=== PATIENT | male | born 1985 | race Caucasian/White ===

== ENCOUNTER 2021-07-24 20:53 | Inpatient (IN) ==
[2021-07-24] MEDS ORDERED: SODIUM CHLORIDE 0.9% 1000ML 1,000 ML IV SCH (21:30)
[2021-07-24] MEDS ORDERED: OPTIRAY 320 125ml IV ONE (21:34)
[2021-07-24 21:44] LABS: Basophils # (auto) 0.01 K/uL (0-0.2); Basophils % (auto) 0.1 %; Hematocrit (blood only) 53.6 % (42-52); Hemoglobin 18.7 g/dL (14.0-18.0); Immature Granulocytes # (auto) 0.03 K/uL (0.00-0.02); Immature Granulocytes % (auto) 0.3 %; Lymphocytes # (auto) 2.03 K/uL (1.2-3.4); Lymphocytes % (auto) 22.6 %; Mean Corpuscular Hemoglobin 29.6 pg (25-34); Mean Corpuscular Hgb Conc 34.9 g/dL (32-36); Mean Corpuscular Volume 84.9 fL (80-100); Mean Platelet Volume 10.4 fL (7.4-10.4); Monocytes # (auto) 0.91 K/uL (0.11-0.59); Monocytes % (auto) 10.1 %; Neutrophils % (auto) 66.9 %; Platelet Count 275 K/uL (130-400); RDW Standard Deviation 40.2 fL (36.4-46.3); Red Blood Count 6.31 M/uL (4.7-6.1); White Blood Count 8.98 K/uL (4.8-10.8)
[2021-07-24 21:47] LABS: Partial Thromboplastin Time 26.8 Seconds (21.0-31.0); Prothrombin Time 10.7 Seconds (9.0-12.0)
[2021-07-24 22:11] LABS: Creatinine Clr Calc Pharmacy 126.1 ml/min; Est GFR (African American) 102.5 ml/min; Est GFR (Non-African American) 88.5 ml/min; Potassium 4.1 mmol/L (3.5-5.1)
[2021-07-24 22:12] LABS: Albumin Globulin Ratio 1.5 (0.9-2); Albumin Level 5.2 gm/dl (3.4-5.0); Bilirubin,Total 1.5 mg/dl (0.2-1.0); Calcium 9.9 mg/dl (8.5-10.1); Globulin 3.4 gm/dl (2.5-4.0); Total Protein 8.6 gm/dl (6.0-8.3)
[2021-07-24 22:15] LABS: Troponin I High Sensitivity 4.8 pg/ml (0-20)
[2021-07-24] MEDS ORDERED: hydroCHLOROthiazide 25 MG TAB PO STA (22:44)
[2021-07-24] MEDS ORDERED: VALSARTAN 80 MG TAB PO STA (22:44)
[2021-07-24 22:46] LABS: Adenovirus PCR Not Detected (NotDetected); Bordetella parapertussis PCR Not Detected (NotDetected); Bordetella pertussis PCR Not Detected (NotDetected); Chlamydia pneumoniae PCR Not Detected (NotDetected); Coronavirus 229E PCR Not Detected (NotDetected); Coronavirus HKU1 PCR Not Detected (NotDetected); Coronavirus NL63 PCR Not Detected (NotDetected); Coronavirus OC43PCR Not Detected (NotDetected); Human Metapneumovirus PCR Not Detected (NotDetected); Influenza A PCR Not Detected (NotDetected); Influenza B PCR Not Detected (NotDetected); Mycoplasma pneumoniae PCR Not Detected (NotDetected); Parainfluenza Virus 1 PCR Not Detected (NotDetected); Parainfluenza Virus 2 PCR Not Detected (NotDetected); Parainfluenza Virus 3 PCR Not Detected (NotDetected); Parainfluenza Virus 4 PCR Not Detected (NotDetected); Respiratory Syncytial VirusPCR Not Detected (NotDetected); Rhinovirus/Enterovirus PCR Not Detected (NotDetected)
[2021-07-24 22:59] LABS: Lyme Ab IgG w/WB Rflx Negative (Negative)
[2021-07-24 23:00] LABS: Lyme Ab IgM w/WB Rflx Negative (Negative)
[2021-07-24 23:00] LABS: Coronavirus CoV-2 (COVID19)PCR DETECTED (NotDetected)
[2021-07-24] MEDS ORDERED: hydrALAZINE HCL 20 MG/ML VIAL IV ONE (23:08)
[2021-07-24] MEDS ORDERED: GADOBUTROL 15ML VIAL IV ONE (23:26)
--- NOTE | 2021-07-25 01:24 | Emergency Department Note ---
ED Provider Note CHIEF COMPLAINT: CVA sx HISTORY OF PRESENT ILLNESS: This 36 yo male patient presents to the emergency department with complaints of facial weakness. The patient states his face feels tired and he is not able to get his words out. He has difficulty swallowing, although he states he can do it. His tongue feels heavy and as though he bit it. He denies any acute pain. Patient denies any visual changes but states his eyes feel tired. He denies any trauma to the head or neck. He denies any recent fevers. He was recently in [place] and states he had a viral illness several days ago. It was mild in nature and he did not think much of i t. The patient resides in [place] and is here for a bachelor constitution party. He states he did have just 1 or 2 drinks today, purposefully "taking it easy" as he was not doing well. REVIEW OF SYSTEMS: A review of systems was performed with positives and pertinent negatives listed in the history of present illness. 10 systems were reviewed and are otherwise negative. ALLERGIES: see below MEDICATIONS: see below PMH: see below SOCIAL HISTORY: see below DDx: Infection, dehydration, metabolic abnormality, hypo/hyperglycemia, electrolyte disturbance, anemia, hypoxia, cardiac sources, intracerebral event, toxicologic, neurologic, as well as other pathologies. PHYSICAL EXAM: Vital signs reviewed. General: Somewhat ill appearing 36 yo male, in no significant distress. HEENT: No scleral icterus, PERRLA, neck supple. Atraumatic. No significant swelling. Extraocular muscles appear to be weak with frequent eye rolling. 4 mm gap to eyelid closing bilaterally. Cardiovascular: Regular rate and rhythm, no extra sounds. Pulmonary: Clear to auscultation bilaterally, normal work of breathing. Abdomen: Soft, nontender, nondistended, positive bowel sounds. Musculoskeletal: Atraumatic, no peripheral edema. Neurologic: Patient awake alert and oriented x 3, speech is muffled but purposeful. Patient has difficulty with articulation. Intact [id number]. Negative pronator drift. Equal emt. Equal sensation to the bilateral facial cheeks. Skin: Warm, dry, no rash EMERGENCY DEPARTMENT COURSE/MDM: This patient was evaluated and appeared to be in no significant distress. Physical examination was performed and is concerning for stroke versus Stephenson's palsy. Patient is noted to be markedly hypertensive and oral medications were ordered per his home regimen. Nursing stated that he had automatically failed his swallow evaluation based on his presenting symptoms therefore IV hydralazine was ordered. Hydralazine did not significantly improve his blood pressure. I did speak with the stroke attending at [facility], Dr. 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 CT angiograms of the head and neck were performed and revealed no evidence of acute abnormality. Neurology had recommended MRI with and without contrast to evaluate for the possibility of malignancy versus stroke. Patient was informed of the findings and plan. He wa s medicated with IV acyclovir and IV Solu-Medrol. MONITORING: An order for cardiac monitoring was placed and the patient is noted to be in a normal sinus rhythm at 98 beats per minute. RADIOLOGY: Preliminary Findings Only See Final Report For Complete Findings CTA HEAD: The cavernous carotids are intact. The MCAs and ACAs are intact. The vertebrals, basilar and metal ceiling builder are intact. origin of both metal ceiling builder. Impression: No acute findings. Radiologist: Stef Henning M.D. Study ready at 21:53 and initial results transmitted at 21:59 Communications: Clear Time Type Notes 07/24/21 22:06 Call Doctor Regarding Stroke, called Dr. Milton on 07/24 22:06 (-04:00) *This Preliminary Findings Only See Final Report For Complete Findings CTA NECK: The aortic arch is intact. The right carotids are intact. The left carotids are intact. The vertebral arteries are intact. Upper lung gross are clear. Soft tissue structures are intact. No acute findings in the bones. Impression: No acute findings. Radiologist: Stef Henning M.D. Study ready at 21:53 and initial results transmitted at 21:59 Communications: Clear Time Type Notes 07/24/21 22:06 Call Doctor Regarding Stroke, called Dr. Milton on 07/24 22:06 (-04:00) MRI HEAD : No mass, hemorrhage or acute infarct. No extra-axial collections. The ventricles are intact. No abnormal enhancement. Impression: No acute findings. Radiologist: Stef Henning M.D. Study ready at 23:41 and initial results transmitted at 01:26 EKG: Normal sinus rhythm with sinus arrhythmia at 94 bpm. Left atrial enlargement, incomplete right bundle branch block, QTC is 435. No previous for comparison. DISPOSITION:Admit Past Med/Surg History Social History Smoking Status: Never smoker Preferred Language: Spanish Feels Safe at Home: Yes Allergies Allergies Allergy/AdvReac Type Severity Reaction Status Date / Time shellfish derived AdvReac CHOKES Verified 07/25/21 01:49 Home Meds Home Medications Medication Instructions Recorded Confirmed Onnit Vitamins 1 pkg PO BID 07/25/21 albuterol sulfate 90 mcg/actuation 2 puff INHALATION Q6 PRN 07/25/21 07/25/21 aerosol inhaler budesonide-formoterol HFA 160 2 puff INHALATION BID 07/25/21 07/25/21 mcg-4.5 mcg/actuation aerosol inhaler (Symbicort) dupilumab 300 mg/2 mL subcutaneous 0 mg SUBCUT .[id number] 07/25/21 07/25/21 syringe (Dupixent) valsartan 160 1 tab PO DAILY 07/25/21 07/25/21 mg-hydrochlorothiazide 25 mg tablet Results & Data (ED) Vital Signs Vital Signs - 24 hr 07/24/21 21:02 07/24/21 21:14 07/24/21 21:26 Temperature 37.1 C Temperature Source Temporal Artery Scan Pulse Rate 101 H Pulse Rate [Apical] 106 H 96 H Pulse Rhythm [Apical] Regular Respiratory Rate 18 21 21 Respiratory Effort / Characteristics Non-Labored Spontaneous Respiratory Depth Normal Normal Normal Respiratory Pattern Regular Blood Pressure 182/121 H Blood Pressure [Right Arm] 198/128 H 188/125 H Blood Pressure Mean 141 Blood Pressure Mean [Right Arm] 151 146 Blood Pressure Position [Right Arm] Lying Pulse Oximetry 96 98 98 Oxygen Delivery Method Room Air Room Air Room Air Sepsis Recent Fever Within 48 Hours No Sepsis New/Unexplained Change in Mental Status N/A Sepsis Action Taken by Nursing No Action Required 07/24/21 21:57 07/24/21 22:40 07/24/21 23:26 Temperature Temperature Source Pulse Rate Pulse Rate [Apical] 95 H 89 94 H Pulse Rhythm [Apical] Regular Regular Respiratory Rate 21 16 16 Respiratory Effort / Characteristics Respiratory Depth Normal Respiratory Pattern Blood Pressure Blood Pressure [Right Arm] 179/119 H 156/111 H 156/111 H Blood Pressure Mean Blood Pressure Mean [Right Arm] 139 126 126 Blood Pressure Position [Right Arm] Pulse Oximetry 98 97 99 Oxygen Delivery Method Room Air Room Air Sepsis Recent Fever Within 48 Hours Sepsis New/Unexplained Change in Mental Status Sepsis Action Taken by Nursing 07/25/21 00:03 07/25/21 00:31 07/25/21 01:12 Temperature Temperature Source Pulse Rate Pulse Rate [Apical] 95 H 87 98 H Pulse Rhythm [Apical] Regular Regular Regular Respiratory Rate 19 19 16 Respiratory Effort / Characteristics Respiratory Depth Respiratory Pattern Blood Pressure Blood Pressure [Right Arm] 171/117 H 141/105 H 177/108 H Blood Pressure Mean Blood Pressure Mean [Right Arm] 135 117 131 Blood Pressure Position [Right Arm] Lying Pulse Oximetry 97 98 97 Oxygen Delivery Method Room Air Room Air Sepsis Recent Fever Within 48 Hours Sepsis New/Unexplained Change in Mental Status Sepsis Action Taken by Nursing 07/25/21 01:31 Temperature Temperature Source Pulse Rate Pulse Rate [Apical] 93 H Pulse Rhythm [Apical] Respiratory Rate 16 Respiratory Effort / Characteristics Respiratory Depth Respiratory Pattern Blood Pressure Blood Pressure [Right Arm] 157/102 H Blood Pressure Mean Blood Pressure Mean [Right Arm] 120 Blood Pressure Position [Right Arm] Pulse Oximetry 97 Oxygen Delivery Method Room Air Sepsis Recent Fever Within 48 Hours Sepsis New/Unexplained Change in Mental Status Sepsis Action Taken by Nursing Laboratory Data Result diagrams: 07/24/21 21:16 07/24/21 21:16 Lab Results 07/24/21 07/24/21 07/24/21 Range/Units 21:00 21:16 21:16 WBC 8.98 (4.8-10.8) K/uL RBC 6.31 H (4.7-6.1) M/uL Hgb 18.7 H (14.0-18.0) g/dL Hct 53.6 H (42-52) % MCV 84.9 (80-100) fL MCH 29.6 (25-34) pg MCHC 34.9 (32-36) g/dL RDW Std Deviation 40.2 (36.4-46.3) fL RDW Coeff of Lorrie 13.0 (11.5-14.5) % Plt Count 275 (130-400) K/uL MPV 10.4 (7.4-10.4) fL Immature Gran % (Auto) 0.3 % Neut % (Auto) 66.9 % Lymph % (Auto) 22.6 % [place] % (Auto) 10.1 % Eos % (Auto) 0.0 % Baso % (Auto) 0.1 % Neut # (Auto) 6.00 (1.4-6.5) K/uL Lymph # (Auto) 2.03 (1.2-3.4) K/uL [place] # (Auto) 0.91 H (0.11-0.59) K/uL Eos # (Auto) 0.00 (0-0.5) K/uL Baso # (Auto) 0.01 (0-0.2) K/uL Immature Gran # (Auto) 0.03 H (0.00-0.02) K/uL PT 10.7 (9.0-12.0) Seconds INR 1.0 (0.9-1.1) APTT 26.8 (21.0-31.0) Seconds PTT Ratio 1.0 Sodium (136-145) mmol/L Potassium (3.5-5.1) mmol/L Chloride (98-107) mmol/L Carbon Dioxide (21-32) mmol/L Anion Gap (3-11) BUN (6-23) mg/dl Creatinine (0.6-1.4) mg/dl Est Cr Clr Drug Dosing ml/min Est GFR ( Amer) ml/min Est GFR (Non-Af Amer) ml/min BUN/Creatinine Ratio (10-20) Glucose (70-99(Fasting)) mg/dl POC Glucose (70-99) mg/dl Calcium (8.5-10.1) mg/dl Magnesium (1.7-2.4) mg/dl Total Bilirubin (0.2-1.0) mg/dl AST (13-39) U/L ALT (7-52) U/L Alkaline Phosphatase (34-104) U/L Troponin I High Sens (0-20) pg/ml Total Protein (6.0-8.3) gm/dl Albumin (3.4-5.0) gm/dl Globulin (2.5-4.0) gm/dl Albumin/Globulin Ratio (0.9-2) Adenovirus (PCR) (NotDetected) B. pertussis DNA (PCR) (NotDetected) B.parapertussis DNA PCR (NotDetected) Lyme Disease IgG Ab Negative (Negative) Lyme Disease IgM Ab Negative (Negative) C. pneumoniae DNA (PCR) (NotDetected) Coronavirus OC43 (PCR) (NotDetected) Coronavirus HKU1 (PCR) (NotDetected) Coronavirus 229E (PCR) (NotDetected) SARS-CoV-2 (PCR) (NotDetected) Coronavirus NL63 (PCR) (NotDetected) Human Metapneumovir PCR (NotDetected) Influenza Type A (PCR) (NotDetected) Influenza Type B (PCR) (NotDetected) M. pneumoniae (PCR) (NotDetected) Parainfluenza 1 (PCR) (NotDetected) Parainfluenza 2 (PCR) (NotDetected) Parainfluenza 3 (PCR) (NotDetected) Parainfluenza 4 (PCR) (NotDetected) RSV (PCR) (NotDetected) Entero/Rhino (PCR) (NotDetected) 07/24/21 07/24/21 07/24/21 Range/Units 21:16 21:23 21:50 WBC (4.8-10.8) K/uL RBC (4.7-6.1) M/uL Hgb (14.0-18.0) g/dL Hct (42-52) % MCV (80-100) fL MCH (25-34) pg MCHC (32-36) g/dL RDW Std Deviation (36.4-46.3) fL RDW Coeff of Lorrie (11.5-14.5) % Plt Count (130-400) K/uL MPV (7.4-10.4) fL Immature Gran % (Auto) % Neut % (Auto) % Lymph % (Auto) % [place] % (Auto) % Eos % (Auto) % Baso % (Auto) % Neut # (Auto) (1.4-6.5) K/uL Lymph # (Auto) (1.2-3.4) K/uL [place] # (Auto) (0.11-0.59) K/uL Eos # (Auto) (0-0.5) K/uL Baso # (Auto) (0-0.2) K/uL Immature Gran # (Auto) (0.00-0.02) K/uL PT (9.0-12.0) Seconds INR (0.9-1.1) APTT (21.0-31.0) Seconds PTT Ratio Sodium 136 (136-145) mmol/L Potassium 4.1 (3.5-5.1) mmol/L Chloride 100 (98-107) mmol/L Carbon Dioxide 26 (21-32) mmol/L Anion Gap 10 (3-11) BUN 13 (6-23) mg/dl Creatinine 1.08 (0.6-1.4) mg/dl Est Cr Clr Drug Dosing 126.1 ml/min Est GFR ( Amer) 102.5 ml/min Est GFR (Non-Af Amer) 88.5 ml/min BUN/Creatinine Ratio 12.0 (10-20) Glucose 87 (70-99(Fasting)) mg/dl POC Glucose 92 (70-99) mg/dl Calcium 9.9 (8.5-10.1) mg/dl Magnesium 2.0 (1.7-2.4) mg/dl Total Bilirubin 1.5 H (0.2-1.0) mg/dl AST 35 (13-39) U/L ALT 33 (7-52) U/L Alkaline Phosphatase 77 (34-104) U/L Troponin I High Sens 4.8 (0-20) pg/ml Total Protein 8.6 H (6.0-8.3) gm/dl Albumin 5.2 H (3.4-5.0) gm/dl Globulin 3.4 (2.5-4.0) gm/dl Albumin/Globulin Ratio 1.5 (0.9-2) Adenovirus (PCR) Not Detected (NotDetected) B. pertussis DNA (PCR) Not Detected (NotDetected) B.parapertussis DNA PCR Not Detected (NotDetected) Lyme Disease IgG Ab (Negative) Lyme Disease IgM Ab (Negative) C. pneumoniae DNA (PCR) Not Detected (NotDetected) Coronavirus OC43 (PCR) Not Detected (NotDetected) Coronavirus HKU1 (PCR) Not Detected (NotDetected) Coronavirus 229E (PCR) Not Detected (NotDetected) SARS-CoV-2 (PCR) DETECTED A* (NotDetected) Coronavirus NL63 (PCR) Not Detected (NotDetected) Human Metapneumovir PCR Not Detected (NotDetected) Influenza Type A (PCR) Not Detected (NotDetected) Influenza Type B (PCR) Not Detected (NotDetected) M. pneumoniae (PCR) Not Detected (NotDetected) Parainfluenza 1 (PCR) Not Detected (NotDetected) Parainfluenza 2 (PCR) Not Detected (NotDetected) Parainfluenza 3 (PCR) Not Detected (NotDetected) Parainfluenza 4 (PCR) Not Detected (NotDetected) RSV (PCR) Not Detected (NotDetected) Entero/Rhino (PCR) Not Detected (NotDetected) Administered Medications Discontinued Medications Gadobutrol (Gadobutrol 15ml Vial) 10.5 ml IV ONCE ONE Stop: 07/24/21 23:27 Last Admin: 07/24/21 23:20 Dose: 10.5 ml Documented by: [id number] Hydralazine HCl (Hydralazine Hcl 20 Mg/Ml Vial) 5 mg IV NOW ONE Stop: 07/24/21 23:09 Last Admin: 07/24/21 23:41 Dose: 5 mg Documented by: [id number] Hydrochlorothiazide (Hydrochlorothiazide 25 Mg Tab) 25 mg PO NOW STA Stop: 07/24/21 22:45 Last Admin: 07/24/21 23:46 Dose: Not Given Documented by: [id number] Ioversol (Optiray 320 125ml) 118 ml IV ONCE ONE Stop: 07/24/21 21:35 Last Admin: 07/24/21 21:36 Dose: 118 ml Documented by: [id number] Methylprednisolone (Methylprednisolone 125 Mg/2 Ml Vial) 60 mg IV NOW STA Stop: 07/25/21 01:32 Last Admin: 07/25/21 01:37 Dose: 60 mg Documented by: [id number] Valsartan (Valsartan 80 Mg Tab) 160 mg PO NOW STA Stop: 07/24/21 22:45 Last Admin: 07/24/21 23:46 Dose: Not Given Documented by: [id number] Discharge Plan Visit Data Chief Complaint: Facial Injury/Pain Stated Complaint: NUMBESS ON RIGHT SIDE OF FACE ED Provider: Enma Milton B Forms Stand Alone Forms: [facility] [employer] Prescriptions Prescriptions: No Action albuterol sulfate 90 mcg/actuation HFA aerosol inhaler 2 puff INHALATION Q6 PRN (Reason: Shortness Of Breath Or Wheezing) RF: 0 valsartan-hydrochlorothiazide 160-25 mg tablet 1 tab PO DAILY RF: 0 budesonide-formoterol [Symbicort] 160-4.5 mcg/actuation HFA aerosol inhaler 2 puff INHALATION BID RF: 0 Dupixent Syringe 300 mg/2 mL syringe 0 mg SUBCUT .[id number] RF: 0 Onnit Vitamins 1 pkg PO BID RF: 0 Allergy Shot 1 dose INJ .[id number] RF: 0 Referrals Referrals: PCP,NO [Primary Care Provider] -
[2021-07-25] MEDS ORDERED: methylPREDNISolone 125 MG/2 ML VIAL IV STA (01:31)
[2021-07-25] MEDS ORDERED: ACYCLOVIR SOD 400 MG in DEXTROSE 5% 250 ML IV ONE (01:47)
[2021-07-25] MEDS ORDERED: ACYCLOVIR SOD 550 MG in DEXTROSE 5% 100 ML IV ONE (01:58)
[2021-07-25] MEDS ORDERED: DEXTROSE 5% IV ONE (02:00)
[2021-07-25] MEDS ORDERED: ACYCLOVIR SOD IV ONE (02:00)
[2021-07-25] MEDS ORDERED: ACETAMINOPHEN 1,000 MG/100 ML VIAL IV STA (02:37)
[2021-07-25] MEDS ORDERED: ONDANSETRON INJ 2 MG/ML 2 ML VIAL IV PRN (06:12)
[2021-07-25] MEDS ORDERED: ACETAMINOPHEN 325 MG TAB PO PRN (06:12)
[2021-07-25] MEDS ORDERED: ALBUTEROL HFA 8 GM INHALER INH PRN (06:12)
[2021-07-25] MEDS ORDERED: NITROGLYCERIN SL 0.4 MG/TAB TAB SL PRN (06:12)
[2021-07-25] MEDS ORDERED: PNEUMOCOCCAL POLYSACCHARIDES 25 MCG/0.5 ML VIAL/SYR IM ONE (06:30)
[2021-07-25] MEDS ORDERED: FLUARIX QUADRIVALENT 0.5 ML SYR IM ONE (06:30)
[2021-07-25] MEDS: SODIUM CHLORIDE 0.9% 1000ML 1,000 ML IV SCH ×2 (07:21→14:09)
--- NOTE | 2021-07-25 07:30 | CT Scan Report ---
CT head/brain wo con CLINICAL HISTORY: Stroke Like Symptoms . Facial numbness COMPARISON STUDY: No previous studies for comparison. CT DOSE: TECHNIQUE: Standard CT of the Brain was performed without IV contrast. A dose lowering technique was utilized adhering to the principles of ALARA. FINDINGS: Extraaxial space: There is no evidence for subdural hematoma. There are no extra-axial fluid collecti ons. Ventricles and cisterns: The ventricles are normal in size and configuration. There is no evidence fo r midline shift or mass effect. Parenchyma: There is no subarachnoid or intraparenchymal hemorrhage. There is no evidence for an acut e infarct or cerebral edema. There is homogeneous attenuation of the brain parenchyma. There are no g ross mass lesions. Osseous structures: There is no evidence for an acute fracture. The visualized paranasal sinuses are clear. The mastoid air cells are clear bilaterally. Soft tissues: There is no evidence for focal soft tissue swelling. IMPRESSION: 1. No acute intracerebral pathology. ACT 112: Negative or not required by law. Electronically signed by: William Mauro M.D. 07/25/2021 7:28 AM
--- NOTE | 2021-07-25 07:33 | CT Scan Report ---
CT angio head w con CLINICAL HISTORY: Stroke Like Symptoms . Facial numbness COMPARISON STUDY: CT brain without contrast from 07/24/2021 CT DOSE: 1146.60 mGy.cm TECHNIQUE: CT Angio of the brain was performed.followed by image post processing with coronal, and s agittal MIP reformats. Contrast Volume: Optiray 320, 118 ml FINDINGS: Vascular findings: There is normal enhancement within the internal carotid arteries bilaterally. The re is normal enhancement noted within the anterior, middle and posterior cerebral arteries. Nonvascular findings: There is homogeneous attenuation of the brain parenchyma bilaterally. There is no evidence for an acute infarct or cerebral edema. IMPRESSION: 1. Negative CT angiogram of the brain with contrast. ACT 112: Negative or not required by law. Electronically signed by: William Mauro M.D. 07/25/2021 7:31 AM
--- NOTE | 2021-07-25 07:35 | CT Scan Report ---
CT angio neck with con CLINICAL HISTORY: Stroke Like Symptoms . Patient with numbness COMPARISON STUDY: No previous studies for comparison. CT DOSE: TECHNIQUE: CT Angio of the neck was performed.followed by image post processing with coronal, and sa gittal MIP reformats.. Stenosis assessment by NASCET criteria. Contrast Volume: Optiray 320, 118 ml FINDINGS: Vascular findings: Right common carotid artery: Patent without significant stenosis. Right internal carotid artery: Patent without significant stenosis. Right vertebral artery: Patent without significant stenosis. Left common carotid artery: Patent without significant stenosis. Left internal carotid artery: Patent without significant stenosis. Left vertebral artery: Patent without significant stenosis. Nonvascular findings: The parotid and submandibular salivary glands appear normal. There is no enlarged cervical adenopathy noted. The airway appears patent. The thyroid gland appears within normal limits. The lung apices ap pear within normal limits. Impression: 1. Negative CT angiogram of the neck with contrast. ACT 112: Negative or not required by law. Electronically signed by: William Mauro M.D. 07/25/2021 7:34 AM
--- NOTE | 2021-07-25 07:49 | Magnetic Resonance Report ---
MR brain wo/w con CLINICAL HISTORY: facial weakness, unable to close eyes, CVA?. Facial numbness COMPARISON STUDY: CT of the brain from 07/24/2021 TECHNIQUE: Multiplanar multisequence images of the brain were performed before and after Gadavist, 1 0.5 mL of IV contrast. Diffusion weighted imaging and ADC mapping was also performed. FINDINGS: Extra-axial space: There is no evidence for a subdural hematoma, There are no extra-axial fluid damaso ections. Ventricles and cisterns: The ventricles are normal in size and configuration. There is no evidence f or midline shift or mass effect. Parenchyma: On noncontrast images, there is no evidence for an acute hemorrhage or infarct. No acute diffusion abnormalities are noted on diffusion weighted imaging or ADC mapping. There is normal lopez -white differentiation. The sulci and gyri appear normal without effacement. The midline structures a re unremarkable. The posterior fossa structures appear normal. On postcontrast images, there is no evidence for enhancing mass lesion. Osseous structures: The paranasal sinuses are well aerated. The mastoid air cells are well aerated. Soft tissues: No focal soft tissue abnormalities are identified. IMPRESSION: 1. No acute intracranial abnormalities. ACT 112: Negative or not required by law. Electronically signed by: William Mauro M.D. 07/25/2021 7:47 AM
[2021-07-25] MEDS ORDERED: hydrALAZINE HCL 20 MG/ML VIAL IV PRN (08:18)
[2021-07-25] MEDS ORDERED: BUDESONIDE/FORMOTEROL FUMARATE 160/4.5 60 PUFFS/INHALER INH SCH (09:00)
[2021-07-25] MEDS ORDERED: FLUTICASONE/VILANTEROL 200/25MCG 14 PUFFS/INHALER INH SCH (09:00)
[2021-07-25] MEDS ORDERED: ENOXAPARIN INJ 40 MG/0.4 ML SYR SQ SCH (09:00)
[2021-07-25] MEDS: hydroCHLOROthiazide 25 MG TAB PO SCH ×2 (09:12→15:10)
[2021-07-25] MEDS: VALSARTAN 80 MG TAB PO SCH ×2 (09:13→15:10)
--- NOTE | 2021-07-25 09:52 | History and Physical Report ---
DATE OF ADMISSION: 03/27/2021. CHIEF COMPLAINT: Stephenson's palsy and COVID. HISTORY OF PRESENT ILLNESS: This is a 36-year-old male with past medical history significant for asthma, hypertension who is from [place] who is visiting [place] for friend's bachelor libertarian. Patient states Monday morning he noticed some weakness in the right face and by the evening it extended left face and got severe and he came to the ER. 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 MRI scan preliminary report was unremarkable. The patient has some mild headache. The patient was found to be COVID positive in the ER. He denied any covid symptoms. No fever, no chills. No cough, no chest pain, no shortness of breath. Currently, no headache, no blurred vision, no runny nose, no sore throat. No nausea, no abdominal pain, normal bowel and bladder movements. No swelling in the legs. Ambulates okay. Currently, the patient cannot raise his brows. Can open his mouth, but cannot smile or cannot show his teeth. ALLERGIES: SHELLFISH DERIVED. PAST MEDICAL HISTORY: As mentioned above. PAST SURGICAL HISTORY: [place] tooth. MEDICATIONS: Patient is on albuterol 2 puffs inhalation q. 6 hours p.r.n., Symbicort 2 puffs inhalation b.i.d., valsartan/hydrochlorothiazide 160/25 mg p.o. daily. FAMILY HISTORY: The patient denies any significant family history. SOCIAL HISTORY: Denies smoking. Alcohol social. Denies any drug use. REVIEW OF SYSTEMS: As per HPI. Rest of the review of systems is negative. PHYSICAL EXAMINATION: GENERAL: The patient is of moderate build, not in acute distress. VITAL SIGNS: Temperature 37.1, pulse 80, respiratory rate 18, blood pressure 147/78, oxygen 98% on room air. HEENT: Pupils equal and reactive to light. Patient cannot smile, cannot move his brows or cannot show his teeth. NECK: No JVD. No neck masses. CARDIOVASCULAR: S1 and S2 heard. Regular rate and rhythm. No murmur, no gallop. RESPIRATORY SYSTEM: Normal AP diameter. No accessory muscle use. No wheezing, no crackles. ABDOMEN: Soft. Bowel sounds are present, nontender, no distention. CENTRAL NERVOUS SYSTEM: Alert and awake, bilateral facial weakness, power 5/5 in all extremities. Sensation is intact. Position sense intact. No pronator drift. EXTREMITIES: No edema, no erythema. LABORATORY DATA: WBC 8.9, hemoglobin 13.7, hematocrit 42.6, platelets 275. PT 10.7, INR 1, APTT 26.8. Sodium 136, potassium 4.1, chloride 100, bicarbonate 26, BUN 13, creatinine 1.08, serum glucose 87, calcium 9.9, magnesium 2, total bilirubin 1.5, AST 35, ALT 33, alkaline phosphatase 77. Troponin-1 high sensitivity 4.8. SARS-CoV-2 PCR positive. Brain MRI, preliminary report unremarkable. CTA head and neck no acute findings. CT head, no acute findings. 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 ER physician talked to the [place] neurologist they recommended MRI of the brain, which was unremarkable, started on acyclovir, and Solu-Medrol which will be continued. We will keep him n.p.o. and consult Neurology in the a.m. will order speech evaluation. 2. COVID positive, patient says vaccinated. currently asymptomatic. We will monitor. COVID precautions. 3. Asthma. Continue home inhalers. 4. Hypertension. Continue home valsartan/hydrochlorothiazide. Monitor the blood pressure. 5. Deep venous thrombosis prophylaxis, Lovenox. DISPOSITION: Closely monitor in med tele. PT/OT prior to discharge. Social Service to help with discharge planning. Job ID: [id number] [facility]
[2021-07-25] MEDS ORDERED: ACYCLOVIR SOD IV SCH (10:00)
[2021-07-25] MEDS ORDERED: DEXTROSE 5% IV SCH (10:00)
--- NOTE | 2021-07-25 10:23 | Electrocardiogram Report ---
Test Reason : Blood Pressure : / mmHG Vent. Rate : 094 BPM Atrial Rate : 094 BPM P-R Int : 170 ms QRS Dur : 108 ms QT Int : 348 ms P-R-T Axes : 072 052 052 degrees QTc Int : 435 ms Normal sinus rhythm with sinus arrhythmia Incomplete right bundle branch block Borderline ECG No previous ECGs available Confirmed by Hipolito Peraza ([id number]) on 07/25/2021 10:22:38 AM Referred By: REFERRED SELF Confirmed By:Hipolito Peraza
--- NOTE | 2021-07-25 11:30 | Communication Note ---
Date of Service: July 25, 2021 Adair is 36 years old currently resides in [facility] where he has lived for the last 10 years is here at a [employer] green party and a week ago was in [place] w here he contracted what he assumed was a viral illness with vague malaise perhaps a low-grade fever and little or no other symptomatology Within the past 24 hours he developed bifacial peripheral weakness preceded by some paresthesias in the right retroauricular region followed by droopiness of the right face and inability to close the right eye, some vaguely defined hyperacusis and perhaps some slight alteration in taste coupled by difficulty with swallowing and followed in relatively short order by a similar set of symptoms involving the left side of the face also consistent with a 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 The Lyme titer was specifically negative He had been admitted to the hospital he remains in no distress he has developed no new symptomatology and neurology has been consulted to advise regarding where to go next He has no active medical problems he takes no medication on a regular basis other than albuterol and allergy shots He did receive Solu-Medrol and acyclovir last night at the advice of the [place] stroke neurology team prior to the positive COVID 19 as being available His review of systems with the exception of the immediate past medical history and current illness is unremarkable and he specifically has had no significant cough sputum production palpitations numbness or tingling in extremities pain in the back or neck and denies any other cranial nerve related symptomatology such as diplopia oscillopsia and really cannot swallow once she gets the food back behind his tongue and in the posterior pharynx denies any nasal regurgitation of food On exam his blood pressure is 167/85 pulse 77 respirations 16 his temperature is 36.9 his O2 saturations are 95 he is awake alert oriented 3 spheres has slightly slurred speech mild to moderate bifacial paresis with limited eye closure and very limited smile and very weak forehead strength but he can puff his cheeks out stick his tongue and cheeks and the palate moves in midline he denies any facial weakness and eye movements are quite normal with no limitation or oscillopsia. He has no tremor tics choreiform activity. He denies any gait disturbance but I did not specifically test gait. 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 This syndrome has been described and in some case reports does respond to short courses of steroids and rarely begins to involve other cranial nerves to any significant degree but some cases will go on to develop paresthesias and some degree of lower extremity weakness There is no way predicting his course at the present time he is already received 1 g of IV Solu-Medrol without any adverse effects He does live in [place] he has a primary care physician there he has a friend who is on route who will drive him to [place] today and there is no obvious signs of respiratory distress or motor weakness In the setting I think a short course of oral steroids is not contraindicated and could be stopped by his primary care physician or any neurologist who sees him in his home area if they feel it is not a cai choice or he begins to decline and may require either IVIG or plasma exchange I see no point in performing diagnostic studies at this institution such as lumbar puncture or serologic testing for anti-GQ 1B IgG or anti-GT 1B IgG and I certainly do not see any role for IVIG therapy in light of the very limited nature of his weakness I do not think an EMG is indicated at this time is at very unlikely to show any significant findings in light of the normal exam I spoke to Dr. Jaimes about my recommendations and I believe he will be discharged today with strict instructions not to operate a motor vehicle and to get in touch with his primary care physician as soon as possible tomorrow morning Roberto Byrnes MD The above note was generated utilizing voice recognition technology and may have punctuation errors spelling errors pronoun usage errors and syntax errors
[2021-07-25] MEDS ORDERED: methylPREDNISolone 60 MG in SYRINGE 0 ML IV SCH (14:00)
--- NOTE | 2021-07-25 14:54 | Discharge Summary ---
Date of Service July 25, 2021 Admission HPI Per Admitting Provider CHIEF COMPLAINT: Stephenson's palsy and COVID. HISTORY OF PRESENT ILLNESS: This is a 36-year-old male with past medical history significant for asthma, hypertension who is from [place] who is visiting [place] for friend's bachelor alliance party. Patient states Monday morning he noticed some weakness in the right face and by the evening it extended left face and got severe and he came to the ER. 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 MRI scan preliminary report was unremarkable. The patient has some mild headache. The patient was found to be COVID positive in the ER. He denied any covid symptoms. No fever, no chills. No cough, no chest pain, no shortness of breath. Currently, no headache, no blurred vision, no runny nose, no sore throat. No nausea, no abdominal pain, normal bowel and bladder movements. No swelling in the legs. Ambulates okay. Currently, the patient cannot raise his brows. Can open his mouth, but cannot smile or cannot show his teeth. Admission Exam Per Admitting Provider GENERAL: The patient is of moderate build, not in acute distress. VITAL SIGNS: Temperature 37.1, pulse 80, respiratory rate 18, blood pressure 147/78, oxygen 98% on room air. HEENT: Pupils equal and reactive to light. Patient cannot smile, cannot move his brows or cannot show his teeth. NECK: No JVD. No neck masses. CARDIOVASCULAR: S1 and S2 heard. Regular rate and rhythm. No murmur, no gallop. RESPIRATORY SYSTEM: Normal AP diameter. No accessory muscle use. No wheezing, no crackles. ABDOMEN: Soft. Bowel sounds are present, nontender, no distention. CENTRAL NERVOUS SYSTEM: Alert and awake, bilateral facial weakness, power 5/5 in all extremities. Sensation is intact. Position sense intact. No pronator drift. EXTREMITIES: No edema, no erythema. Principal Diagnosis Left facial weakness COVID 19 Hypertension Asthma Discharge Exam General- No acute distress Head- atraumatic Eyes- PERRL, EOMI, ENT- oropharynx clear Neck- supple, no JVD Lungs- clear to auscultation Heart- regular rhythm; no murmur Abdomen- normal bowel sounds, soft, nontender Extremities- no calf tenderness Neuro- alert, oriented, PERRL, EOMI; no facial palsy; slight slurred speech, bifacial paresis with limited eye closure, holding his lips together to puff his cheeks, able to stick his tongue out side to side, normal gait Skin- warm & dry Discharge Data Allergies Allergy/AdvReac Type Severity Reaction Status Date / Time shellfish derived AdvReac CHOKES Verified 07/25/21 01:49 ENVIRONMENTAL Allergy ITCHY Uncoded 07/25/21 01:51 EYES, SNEEZES Consultations 07/25/21 01:49 ED Decision to Admit Stat 07/25/21 06:12 Consult Neurology Routine Ordered Studies 07/24/21 21:26 CT angio head w con Urgent CT angio neck with con Urgent CT head/brain wo con Urgent 07/24/21 22:00 MR brain wo/w con Urgent Hospital Course (1) Facial weakness: Present on admission with worsening facial weakness Mostly related topost COVID 19 [place] Staples variant with bifacial weakness [facility] stroke was contacted by the ER provider CT head showed no acute intracerebral pathology. CTA head showed negative CT angiogram of the brain with contrast. CTA neck showed negative CT angiogram of the neck with contrast. MRI head showed no acute intracranial abnormality He was started on IV Acyclovir and dexamethasone Neuro on board Pt lives in [place] and would like to return home today since his friend will drive to [place] Case discussed with Neuro Dr. Byrnes that recommended short course of steroid taper with Prednisone 60mg x3 days, then 40mgx 3 days, then 20mg x 3days, then 10mg x 3days then stop Speech on board - recommended no straws for now - tolerated diet Pt will be contacted his PCP tomorrow and follow with Neuro once he gets to [place] Pt was advised not to operate or drive motor vehicle Ok from neurology standpoint to discharge home today Pt was advised if symptoms worsening to seek urgent medical attention (2) COVID-19: Testing positive for COVID 19 Saturated well on RA Current on IV dexamethasone Pt was advised to practice social distance and to wear mask Advised to seek urgent medical attention if develop any shortness of breath (3) HTN (hypertension): BP elevated Continue home BP meds Asthma Continue symbicort Stable DVT px On lovenox Total Time Total Time Spent Total Time Spent (In Minutes): 35 minutes Discharge Plan Discharge Items Patient Disposition: Home - Self-Care Reason For Visit: FACIAL WEAKNESS Discharge Diagnosis: COVID 19 Facial weakness Activity: Resume your previous activity Non-emergency contact: Primary Care Provider and Neurologist Call non-emergency contact if: you have any medication questions Follow-up/Referrals: PCP,ANAHI [Primary Care Provider] - Diet: Regular and Low Sodium (2gm) Addtl Attending Provider Instructions: Follow up with your primary care provider within 2-3 days in [place] Follow up with Neurology in 1 week for the facial weakness If symptoms do not improve, your provider might consider to get lumbar puncture or serologic testing Advised not to operate or drive motor vehicleonce symptoms resolve Continue Prednisone taper course Advised to practice social distance and to wear mask Seek urgent medical attention if your symptoms worsening or develop any shortness of breath Fall precaution Home Isolation COVID-19 Instructions The following information about Home Isolation is from the CDC Website: https://www.cdc.gov/coronavirus/2019-ncov/hcp/feoqslpb-mhirehi-iherac.html Stay home except to get medical care People who are mildly ill with COVID-19 are able to isolate at home during their illness. You should restrict activities outside your home, except for getting medical care. Do not go to work, school, or public areas. Avoid using public transportation, ride-sharing, or taxis. Separate yourself from other people and animals in your home People: As much as possible, you should stay in a specific room and away from other people in your home. Also, you should use a separate bathroom, if available. Animals: You should restrict contact with pets and other animals while you are sick with COVID-19, just like you would around other people. Although there have not been reports of pets or other animals becoming sick with COVID-19, it is still recommended that people sick with COVID-19 limit contact with animals until more information is known about the virus. When possible, have another member of your household care for your animals while you are sick. If you are sick with COVID-19, avoid contact with your pet, including petting, snuggling, being kissed or licked, and sharing food. If you must care for your pet or be around animals while you are sick, wash your hands before and after you interact with pets and wear a face mask. Call ahead before visiting your doctor If you have a medical appointment, call the healthcare provider and tell them that you have or may have COVID-19. This will help the healthcare providers office take steps to keep other people from getting infected or exposed. Wear a face mask You should wear a face mask when you are around other people (e.g., sharing a room or vehicle) or pets and before you enter a healthcare providers office. If you are not able to wear a face mask (for example, because it causes trouble breathing), then people who live with you should not stay in the same room with you, or they should wear a face mask if they enter your room. Cover your coughs and sneezes Cover your mouth and nose with a tissue when you cough or sneeze. Throw used tissues in a lined trash can. Immediately wash your hands with soap and water for at least 20 seconds or, if soap and water are not available, clean your hands with an alcohol-based hand dog food shredder operator that contains at least 60% alcohol. Clean your hands often Wash your hands often with soap and water for at least 20 seconds, especially after blowing your nose, coughing, or sneezing; going to the bathroom; and before eating or preparing food. If soap and water are not readily available, use an alcohol-based hand dog food shredder operator with at least 60% alcohol, covering all surfaces of your hands and rubbing them together until they feel dry. Soap and water are the best option if hands are visibly dirty. Avoid touching your eyes, nose, and mouth with unwashed hands. Avoid sharing personal household items You should not share dishes, drinking glasses, cups, eating utensils, towels, or bedding with other people or pets in your home. After using these items, they should be washed thoroughly with soap and water. Clean all high-touch surfaces everyday High touch surfaces include counters, tabletops, doorknobs, bathroom fixtures, toilets, phones, keyboards, tablets, and bedside tables. Also, clean any surfaces that may have blood, stool, or body fluids on them. Use a household cleaning spray or wipe, according to the label instructions. Labels contain instructions for safe and effective use of the cleaning product including precautions you should take when applying the product, such as wearing gloves and making sure you have good ventilation during use of the product. Monitor your symptoms Seek prompt medical attention if your illness is worsening (e.g., difficulty breathing).Beforeseeking care, call your healthcare provider and tell them that you have, or are being evaluated for, COVID-19. Put on a face mask before you enter the facility. These steps will help the healthcare providers office to keep other people in the office or waiting room from getting infected or exposed. Ask your healthcare provider to call the local or state health department. Persons who are placed under active monitoring or facilitated self- monitoring should follow instructions provided by their local health department or occupational health professionals, as appropriate. When working with your local health department check their available hours. If you have a medical emergency and need to call 911, notify the dispatch personnel that you have, or are being evaluated for COVID-19. If possible, put on a face mask before emergency medical services arrive. Discontinuing home isolation Patients with confirmed COVID-19 should remain under home isolation precautions until the risk of secondary transmission to others is thought to be low. The decision to discontinue home isolation precautions should be made on a [id number] basis, in consultation with healthcare providers and [facility] departments. Coronavirus disease 2019 (COVID-19) is a virus that causes a respiratory illness. It is caused by a coronavirus called 2019 novel coronavirus (2019- nCoV). There are many types of coronavirus. Coronaviruses are a very common cause of bronchitis. They may sometimes cause lung infection(pneumonia). Symptoms can range from mild to severe respiratory illness. These viruses are also foundin some animals. COVID-19 was first found in people in [facility], in late 2019. In 2020, several cases of COVID-19 have been confirmed in the [place] Public health officials are working to find the source. How the virus spreads is not yet fully known. It may be spread through droplets of fluid that a person coughs or sneezes into the air. It may be spread if you touch a surface with virus on it, such as a handle or object, and then touch your mouth. What are the symptoms of COVID-19? Some people have no symptoms or mild symptoms. Symptoms may appear 2 to 14 days after contact with the virus. Symptoms can include: Fever Coughing Trouble breathing What are possible complications from COVID-19? In many cases, this virus can cause infection (pneumonia) in both lungs. In some cases, this can cause . How is COVID-19 diagnosed? Your healthcare provider will ask about your symptoms. He or she will also ask about your recent travel and contact with sick people. Testing for the virus is only done through the CDC. If yourhealthcare provider thinks you may have COVID- 19, he or she will work with your local health department and the CDC on testing. Follow all instructions from your healthcare provider. COVID-19 is diagnosed by: Nasal and throat swab. A cotton-tipped swab is wiped inside your nose or throat. This is done to check for viruses in your nasal mucus. Sputum culture. A small sample of mucus coughed from your lungs (sputum) is collected if you have a cough. It is checked for the virus. How is COVID-19 treated? There is currently no medicine to treat the virus. Treatment is done to help your body while it fights the virus. This is known as supportive care. Supportive care may include: Pain medicine. These include acetaminophen and ibuprofen. They are used to help ease pain and reduce fever. Bed rest. This helps your body fight the illness. For severe illness, you may need to stay in the hospital. Care during severe illness may include: IV (intravenous) fluids.These are given through a vein to help keep your body hydrated. Oxygen. Supplemental oxygen or ventilation with a breathing machine (ventilator) may be given. This is done to keep enough oxygen in your body. Are you at risk for COVID-19? If youve been to a place where people have been sick with this virus, you are at risk for infection. You are at risk if you: Recently traveled to an affected area Had contact with a sick person who recently traveled to this area Had contact with a person who was diagnosed with COVID-19 How can COVID-19 be prevented? There is no vaccine yet. The best prevention is to not have contact with the virus. The CDC advises that people should not travel to areas where there are COVID-19 outbreaks right now for any reason that is not urgent. To help prevent spreading the infection, wash your hands often, or use an alcohol-basedhand dog food shredder operator. If you are in an area with COVID-19: Wash your hands often. Or use an alcohol-based hand dog food shredder operator often. Only touch your eyes, nose, or mouth with clean hands. Dont have contact with people who are sick. Follow local instructions about being in public. For example, you may be told to not use public transport for a period of time. Stay away from markets that have live or animals. Wash your hands after touching any animals. Don't touch animals that may be sick. Dont share eating or drinking tools with sick people. Dont kiss someone who is sick. Clean surfaces often with disinfectant. If you were in an area with COVID-19 in the last 14 days: Call your healthcare provider. He or she can talk with local health staff to see what action may be needed. Follow all instructions from your provider. Take your temperature every morning and evening for at least 14 days. This is to check for fever. Keep a record of the readings. Keep watch for symptoms of the virus. Tell your provider right away if you have symptoms. If you were in an area with COVID-19 and have a fever or other symptoms: Dont panic. Keep in mind that other illnesses can cause similar symptoms. Stay away from work, school, and public places. Limit physical contact with family members. Don't kiss anyone or share eating or drinking utensils. Clean surfaces you touch with disinfectant. This is to help prevent the virus from spreading. Call your healthcare provider. Explain that you have been exposed to COVID-19 and have symptoms. Do this before going to any hospital. Wait for instructions. Keep in mind that healthcare staff may wear protective equipment such as masks, gowns, gloves, and eye protection. You may be put in a separate room. This is to prevent the possible virus from spreading. Tell the healthcare staff about recent travel. This includes local travel on public transport. Staff may need to find other people you have been in contact with. Follow all instructions the healthcare staff give you. If you have been diagnosed with COVID-19 Follow all instructions from your healthcare provider. Dont leave your home, except to get medical care. Call your healthcare providers office before going. They can prepare and give you instructions. This will help prevent the virus from spreading. Dont go to work, school, or public areas. Dont use public transport or taxis. Stay away from other people in your home. Have them wear face masks around you. Dont share household items or food. Wear a face mask if you can. This includes at home or in a medical facility. Cover your face with a tissue when you cough or sneeze. Throw the tissue away. Wash your hands. Wash your hands often. Caregivers should: Follow all instructions from healthcare staff. Wear a face mask and protective clothing as advised. Wash hands often. Keep track of the sick persons symptoms. Clean surfaces, fabrics, and laundry thoroughly. Keep other people away from the sick person. When to call your healthcare provider Call your healthcare provider: If youve recently traveled and have symptoms If you have been diagnosed with COVID-19 and your symptoms are worse To learn more To find out more about COVID-19, visit the CDC website at www.cdc.gov/coronavirus/2019-ncov/index.html. [employer]. [address] [place] [address]. All rights reserved. This information is not intended as a substitute for professional medical care. Always follow your healthcare professional's instructions. This information has been adapted from [employer] Pending Studies at Discharge: No Stand-Alone Forms: My [employer], Smoking Cessation Medications and DC Order Prescriptions: New prednisone 20 mg tablet 20 mg PO UD Qty: 20 RF: 0 Continued albuterol sulfate 90 mcg/actuation HFA aerosol inhaler 2 puff INHALATION Q6 PRN (Reason: Shortness Of Breath Or Wheezing) RF: 0 valsartan-hydrochlorothiazide 160-25 mg tablet 1 tab PO DAILY RF: 0 budesonide-formoterol [Symbicort] 160-4.5 mcg/actuation HFA aerosol inhaler 2 puff INHALATION BID RF: 0 Dupixent Syringe 300 mg/2 mL syringe 0 mg SUBCUT .[id number] RF: 0 Onnit Vitamins 1 pkg PO BID RF: 0 Allergy Shot 1 dose INJ .[id number] RF: 0 Discharge Orders: Discharge Order (Routine); Ordered 07/25/21 Ordered By: Tiara Jaimes Admission Data Admit Date/Time: 07/25/21 03:32 Attending Provider: Tiara Jaimes Admit Provider: Luis A Mccall Primary Care Provider: PCP,NO Other Providers: Luis A Mccall ; Roberto Byrnes Other Interventions: Discharge Summary Assessment (RN) Last Done: 07/25/21 15:49
[2021-07-25] MEDS ORDERED: methylPREDNISolone 125 MG/2 ML VIAL IV SCH (21:00)
== END 2021-07-25 16:16 | disposition home or self-care (01) | DRG 179 ==
LOC: ED 20:53 → 2S 07-25 03:32